=== PATIENT | male | born 1965 | race Two or more races ===

== ENCOUNTER 2018-11-09 06:55 | Emergency (ER) | payer OTHER ==
[~2018-11-09] VITALS: Ht 177.8 cm; Wt 106.6 kg
[2018-11-09] MEDS ORDERED: MORPHINE SULFAT60 M4 PO (07:42)
[2018-11-09] MEDS ORDERED: SIMVASTATIN80 MG (07:43)
[2018-11-09] MEDS ORDERED: ATENOLOL50 MG PO (07:44)
[2018-11-09] MEDS ORDERED: NORVASC10 MG PO (07:44)
[2018-11-09] MEDS ORDERED: VASOTEC20 M1 PO (07:44)
[2018-11-09] MEDS ORDERED: TAMS0.4C PO (16:04)
[2018-11-09] MEDS ORDERED: KETO10TA2 PO (16:04)
== END 2018-11-09 18:07 | disposition home or self-care (01) ==
LOC: ER 06:55
DX: N20.1 Calculus of ureter (principal); R10.32 Left lower quadrant pain

== ENCOUNTER 2019-07-11 10:57 | Inpatient (IN) | payer OTHER ==
[~2019-07-11] VITALS: Ht 177.8 cm; Wt 106.1 kg
[~2019-07-11 10:57] MED LIST: ATENOLOL50 MG PO; KETO10TA2 PO; MORPHINE SULFAT60 M4 PO; NORVASC10 MG PO; SIMVASTATIN80 MG; TAMS0.4C PO; VASOTEC20 M1 PO
[2019-07-15] MEDS ORDERED: OSEL75CA PO (13:33)
[2019-07-15] MEDS ORDERED: MEDROLPACK PO (13:34)
== END 2019-07-15 15:12 | disposition home or self-care (01) | DRG 203 ==
LOC: ER 10:57 → ICUI 19:45 → ICU-2 19:45 → MEDJ 07-13 11:29
PROVIDERS: ADMIT Internal Medicine
PROC: 8E0ZXY6 Isolation (ICD-10-PCS; principal; 2019-07-11)
PROC: BB24ZZZ Computerized Tomography (CT Scan) of Bilateral Lungs (ICD-10-PCS; 2019-07-11)
PROC: 3E0F7GC Introduction of Other Therapeutic Substance into Respiratory Tract, Via Natural or Artificial Opening (ICD-10-PCS; 2019-07-11)
PROC: 4A033R1 Measurement of Arterial Saturation, Peripheral, Percutaneous Approach (ICD-10-PCS; 2019-07-11)
DX: J45.32 Mild persistent asthma with status asthmaticus (principal); J09.X2 Influenza due to identified novel influenza A virus with other respiratory manifestations

== ENCOUNTER 2020-06-08 08:06 | Inpatient (IN) | payer OTHER ==
[~2020-06-08] VITALS: Ht 167.6 cm; Wt 108.9 kg
[~2020-06-08 08:06] MED LIST changes: +MEDROLPACK PO; +OSEL75CA PO
--- NOTE | 2020-06-08 08:32 | NUR ---
SE RECIBE PACIENTE ALERTA, ORIENTADO X 3 ESFERAS REFIERE TENER DOLOR MUSCULAR TEMPERATURA ELEVADA DESDE IVANNA. TEM. 100.5
[2020-06-08] MEDS ORDERED: LYRICA225 MG PO (10:10)
--- NOTE | 2020-06-08 10:59 | NUR ---
IV LINE IS STARTED ON PATIENT'S LEFT HAND AND BLOOD SAMPLES ARE COLLECTED IN ORDER TO COMPLETE LABS. IM MEDICATIONS ARE INJECTED INTO BOTH UPPER GLUTES OF PATIENT. PATIENT IS PLACED IN BED WITH RAILINGS UP.
[2020-06-12] MEDS ORDERED: TAMS0.4C PO (09:13)
[2020-06-12] MEDS ORDERED: CEFDINIR300 MG PO (09:13)
== END 2020-06-12 09:41 | disposition home or self-care (01) | DRG 690 ==
LOC: ER 08:06 → SEC-K 20:31 → MEDI 20:31 → MEDJ 20:46 → MEDI 06-09 00:56
PROVIDERS: ADMIT Internal Medicine; ATTEND Internal Medicine
PROC: BW21ZZZ Computerized Tomography (CT Scan) of Abdomen and Pelvis (ICD-10-PCS; principal; 2020-06-10)
PROC: BW4GZZZ Ultrasonography of Pelvic Region (ICD-10-PCS; 2020-06-11)
DX: N39.0 Urinary tract infection, site not specified (principal); I10 Essential (primary) hypertension; E78.49 Other hyperlipidemia; K57.30 Diverticulosis of large intestine without perforation or abscess without bleeding; K40.90 Unilateral inguinal hernia, without obstruction or gangrene, not specified as recurrent; K42.9 Umbilical hernia without obstruction or gangrene; R10.32 Left lower quadrant pain; N40.0 Benign prostatic hyperplasia without lower urinary tract symptoms; Z20.828 Contact with and (suspected) exposure to other viral communicable diseases

== ENCOUNTER 2021-10-27 21:26 | Emergency (ER) | payer OTHER ==
[~2021-10-27] VITALS: Ht 177.8 cm; Wt 98.9 kg
[~2021-10-27 21:26] MED LIST changes: +CEFDINIR300 MG PO; +LYRICA225 MG PO
[2021-10-27] MEDS ORDERED: OMEPRAZOLE-BIC1 EACH (21:47)
[2021-10-27] MEDS ORDERED: CYMBALTA60 MG (21:47)
== END 2021-10-28 02:43 | disposition home or self-care (01) ==
LOC: ER 21:26
DX: J06.9 Acute upper respiratory infection, unspecified (principal); Z20.822 Contact with and (suspected) exposure to COVID-19; J20.8 Acute bronchitis due to other specified organisms

== ENCOUNTER 2024-06-06 20:28 | Emergency (ER) | payer OTHER ==
[~2024-06-06] VITALS: Ht 177.8 cm; Wt 89.8 kg
[~2024-06-06 20:28] MED LIST changes: +CYMBALTA60 MG; +OMEPRAZOLE-BIC1 EACH
[2024-06-06] MEDS ORDERED: BENICAR40 MG PO (21:03)
[2024-06-06] MEDS ORDERED: PANTOPRAZOLE SO40 M2 PO (21:04)
[2024-06-06] MEDS ORDERED: CHLORTHALIDONE25 MG PO (21:05)
[2024-06-06] MEDS ORDERED: BISOPROLOL-HCT1 EAC1 PO (21:05)
[2024-06-06] MEDS ORDERED: AMLODIPINE-OLM1 EAC3 PO (21:05)
[2024-06-06 23:16] LABS: URINE APPEARANCE Clear; URINE BILIRRUBIN Negative (NEGATIVE); URINE BLOOD Negative; URINE COLOR Yellow; URINE GLUCOSE Negative (NEGATIVE); URINE KETONE Negative (NEGATIVE); URINE LEUKOCYTE Negative; URINE NITRATE Negative; URINE PROTEIN Negative (NEGATIVE); URINE UROBILINOGEN 0.2 E.U./dl
[2024-06-06 23:19] LABS: URINE EPITHELIAL CELLS 3.3 uL (0.0-38.8); URINE RBC 2.9 uL (0.0-20.8); URINE WBC 2.7 uL (0.0-23.2)
[2024-06-06] MEDS ORDERED: DEXAMETHASONE SODIUM PHOSPHATE 4 MG/ML VIAL IM STA (23:36)
[2024-06-06] MEDS ORDERED: MEDROLPACK PO (23:49)
[2024-06-06] MEDS ORDERED: CIPRO500 MG PO (23:49)
[2024-06-06] MEDS ORDERED: PEPCID AC20 MG PO (23:49)
== END 2024-06-07 00:25 | disposition home or self-care (01) ==
LOC: ER 20:29
DX: R10.32 Left lower quadrant pain (principal); N50.82 Scrotal pain
CPT/HCPCS: 36415; 96372; 99282; J1100